=== PATIENT | male | born 1985 | race African-American/Black ===

== ENCOUNTER 2016-10-31 11:49 | Emergency (ER) | payer OTHER ==
[2016-10-31 11:55] VITALS: BP 121/79; PULSE 72; TEMP 98.5; BMI 25.8
--- NOTE | 2016-10-31 12:08 | PDOC ---
History of Present Illness - General Chief Complaint: Rash Stated Complaint: RASH Time Seen by Provider: 10/31/16 11:59 History Source: Care Provider Exam Limitations: Clinical Condition, Physical Impairment - History of Present Illness Timing/Duration: unsure Severity: mild Associated Symptoms: reports: denies symptoms Past History - Travel Traveled outside of the country in the last 30 days: No Close contact w/someone who was outside of country & ill: No - Past Medical History Allergies/Adverse Reactions: Allergies Allergy/AdvReac Type Severity Reaction Status Date / Time ciprofloxacin [From Cipro] Allergy Verified 10/31/16 11:50 ciprofloxacin HCl Allergy Verified 10/31/16 11:50 [From Cipro] Penicillins Allergy Verified 10/31/16 11:50 Home Medications: Ambulatory Orders Benztropine Mesylate [Cogentin -] 1 mg PO DAILY 10/31/16 Cabergoline [Dostinex -] 0.5 mg PO ASDIR 10/31/16 Hydrocortisone 2.5% Topical Cr [Anusol 2.5% Hc Cream -] 1 applic RC BID #1 tube 10/31/16 Lubiprostone [Amitiza] 24 mcg PO BID 10/31/16 Magnesium Oxide [Magox 400] 800 mg PO DAILY 10/31/16 Risperidone [Risperdal] 1 mg PO DAILY 10/31/16 Risperidone [Risperdal] 2 mg PO HS 10/31/16 Sulfamethoxazole/Trimethoprim [Sulfamethoxazole-Tmp Ds Tablet] 1 each PO BID Psychiatric Problems: Yes Other medical history: MENTAL RETARDATION, SCHIZOPHRENIA,SELF ABUSE - Psycho/Social/Smoking Cessation Hx Suicidal Ideation: No (UNABLE TO OBTAIN) Smoking History: Never smoked Hx Alcohol Use: No (UNABLE TO OBTAIN) Drug/Substance Use Hx: No (UNABLE TO OBTAIN) Substance Use Type: None Review of Systems - Review of Systems Able to Perform ROS?: No (due to prior conditions) Is the patient limited Ukrainian proficient: No Constitutional: No: Symptoms Reported HEENTM: No: Symptoms Reported Respiratory: No: Symptoms reported, See HPI, Cough, Orthopnea, Shortness of Breath, SOB with Exertion, SOB at Rest, Stridor, Wheezing, Productive cough, Hemoptysis, Other Cardiac (ROS): No: Symptoms Reported, See HPI, Chest Pain, Edema, Irregular Heart Rate, Lightheadedness, Palpitations, Syncope, Chest Tightness, Other Integumentary: Yes: Symptoms Reported, See HPI, Rash Neurological: Yes: Pre-Existing Deficit Psychiatric: Yes: Mood Swings *Physical Exam - Vital Signs Last Vital Signs Temp Pulse Resp BP Pulse Ox 98.5 F 72 18 121/79 100 10/31/16 11:50 10/31/16 11:50 10/31/16 11:50 10/31/16 11:50 10/31/16 11:50 - Physical Exam General Appearance: Yes: Nourished, Appropriately Dressed, Thin HEENT: positive: JOSÉ MIGUEL Neck: positive: Supple Respiratory/Chest: positive: Normal Breath Sounds Cardiovascular: positive: Regular Rate Lymphatic: negative: Adenopathy Musculoskeletal: positive: Normal Inspection Extremity: positive: Normal Capillary Refill Integumentary: positive: Rash Neurologic: negative: Fully Oriented (Minimally interactive) *DC/Admit/Observation/Transfer Diagnosis at time of Disposition: Skin rash - Discharge Dispostion Disposition: HOME Condition at time of disposition: Stable Admit: No - Prescriptions Prescriptions: Hydrocortisone 2.5% Topical Cr [Anusol 2.5% Hc Cream -] 1 applic RC BID #1 tube - Referrals - Patient Instructions Printed Discharge Instructions: DI for Hives
== END 2016-10-31 12:55 | disposition home or self-care (01) ==
LOC: FER 11:49
DX: R21 Rash and other nonspecific skin eruption (principal)
CPT/HCPCS: 99281-25